=== PATIENT | male | born 1975 | race American Indian/Alaskan Native ===

== ENCOUNTER → 2019-05-17 16:01 | Outpatient (CLI) | payer OTHER, SELFPAY ==
--- NOTE | 2019-05-17 | DI.RAD.S_ITS ---
PROCEDURE: XR WRIST RT MIN 3V INDICATIONS: Right wrist pain TECHNIQUE: 3 views of the wrist were acquired. COMPARISON: [facility], , FOREARM RIGHT, 04/23/2012, 2:04. FINDINGS: Bones: No acute fractures or dislocations but there is a morphologic anomaly at the scaphoid/trapezium area where an osseous structure articulates against the base of the trapezium as a separate and CT, and then more proximally through the radiocarpal area a smaller additional osseous structure appears to represent a a second independent component of the proximal carpal row. 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 This appearance was also present in March 2012 during a plain film evaluation of the forearm, but much better visualized by the current study. No suspicious bony lesions. Scaphoid view: 1 obtained at the scaphoid visualized Soft tissues: No suspicious soft tissue calcifications. 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 Currently no acute disease appears present. The current findings would likely predispose to degenerative osteoarthritic change. Dictated by: Enrrique Dooley M.D. on 05/18/2019 at 11:01 Approved by: Enrrique Dooley M.D. on 05/18/2019 at 11:08
== END ==
PROVIDERS: Referring Provider Physician Assistant; Visit Provider Physician Assistant
DX: M25.531 Pain in right wrist (principal)
CPT/HCPCS: 73110